=== PATIENT | male | born 1965 ===

== ENCOUNTER 2023-12-29 06:33 | Observation (INO) ==
[~2023-12-29 06:33] MED LIST: Metoclopramide 5 MG/ML VIAL (10 mg) IV PRN; NS 0.45% 1000 ml BAG 1,000 ML IV SCH; Naloxone 0.4 mg VIAL 0.4 mg/ml 1 ml VIAL IV PRN; Ondansetron 4 mg VIAL 2 MG/ML 2 ml VIAL IV PRN; fentaNYL 100 mcg/2 ml 50 MCG/ML VIAL IV PRN
[2023-12-29] MEDS ORDERED: Tranexamic Acid 1 GM/100ML BAG 2,000 MG/200 ML BAG IV ONE (07:41)
[2023-12-29] MEDS ORDERED: ceFAZolin 2 GM in NS PREMIX 2 GM/100 ML BAG IVPB ONE (07:41)
[2023-12-29] MEDS: Lactated Ringers 1000 ml BAG 1,000 ML IV SCH ×2 (07:52→15:10)
[2023-12-29 07:57] LABS: Rapid COVID-19 Molecular Undetected (Undetected)
[2023-12-29] MEDS ORDERED: Midazolam 5 mg/5 ml VIAL 1 mg/ml 5 ml VIAL (5 mg) ONE (08:27)
[2023-12-29] MEDS ORDERED: ROPIVACAINE 5 MG/ML 30 ML BTL (0.5%) ONE ×2 (08:35→08:51)
[2023-12-29] MEDS ORDERED: KETAMINE HCL 10 MG/ML 20 ml VIAL (200 MG) ONE (09:52)
[2023-12-29] MEDS ORDERED: Sevoflurane BOTTLE ONE (10:13)
[2023-12-29] MEDS ORDERED: Ondansetron 4 mg VIAL 2 MG/ML 2 ml VIAL ONE (11:38)
[2023-12-29] MEDS ORDERED: Lactulose 30 ml UDC PO PRN (12:06)
[2023-12-29] MEDS ORDERED: Ondansetron 4 mg VIAL 2 MG/ML 2 ml VIAL IV PRN (12:06)
[2023-12-29] MEDS ORDERED: Ondansetron ODT 4 mg TAB 4 MG TAB PO PRN (12:06)
[2023-12-29] MEDS ORDERED: Calcium Carb (TUMS) 500 mg CHEW TAB PO PRN (12:06)
[2023-12-29] MEDS ORDERED: Magnesium Hydroxide LIQ 30 ML UDC PO PRN (12:06)
[2023-12-29] MEDS ORDERED: Morphine 2 MG/ML SYRINGE IV PRN (12:06)
[2023-12-29] MEDS: Acetaminophen IV 1 GM/100ML 1,000 MG/100 ML BAG IV ONE (15:25)
[2023-12-29] MEDS: Buffered Lidocaine 1% SYRIN 1 ml INTRADERM ONE (15:26)
[2023-12-29] MEDS: Scopolamine 1 mg/72hr PATCH TRANSDERM ONE (15:27)
[2023-12-29 16:22] VITALS: BP 145/98
[2023-12-29] MEDS: ceFAZolin 2 GM in NS PREMIX 2 GM/100 ML BAG IVPB SCH (17:57)
[2023-12-29] MEDS ORDERED: Magnesium Hydroxide LIQ 30 ML UDC PO SCH (21:00)
[2023-12-30] MEDS ORDERED: Vitamin THERAPEUTIC TAB PO SCH (09:00)
== END 2023-12-29 18:50 | disposition home or self-care (01) ==
LOC: SSU 06:33 → OR 06:33
PROVIDERS: ADMIT Orthopaedic Surgery Adult Reconstructive Orthopaedic Surgery; ATTEND Orthopaedic Surgery Adult Reconstructive Orthopaedic Surgery